=== PATIENT | female | born 1935 | race Caucasian/White ===

== ENCOUNTER 2016-12-21 22:47 | Inpatient (IN) | payer OTHER ==
[~2016-12-21] VITALS: Ht 152.4 cm; Wt 102.7 kg
[~2016-12-21 22:47] MED LIST: ACTOS15 MG PO; ADULT LOW DOSE81 M1 PO; FISH OIL 1,0001 EAC7 PO; GLIPIZIDE XL10 MG PO; GLUCOPHAGE1000 MG PO; HYDROCHLOROTHIA25 MG PO; JANUMET 50/11 TABLET PO; LEVOTHROID,S0.137 MG PO; LOPRESSOR100 M1 PO; NIASPAN1000 MG PO; NORVASC2.5 MG PO; PRINIVIL40 MG PO; SIMVASTATIN20 MG PO
[2016-12-21 23:42] LABS: EOSINOPHIL (%) 0.4 % (0-5); HEMATOCRIT 40.6 % (36.0-46.0); IMMATURE GRANULOCYTE (%) 3.7 % (0.0-0.7); IMMATURE GRANULOCYTE COUNT 0.2 K/uL; LYMPHOCYTE COUNT 0.6 K/uL (1.0-2.8); MCH 28.8 PG (29.0-34.0); MCHC 33.5 G/DL (30.0-36.0); MCV 85.8 FL (83-99); MEAN PLAT.VOLUME 11.9 uM^3 (9.5-12.4); MONOCYTE (%) 17.7 % (3-12); MONOCYTE COUNT 0.8 K/uL (0-0.8); PLATELET COUNT 189 K/uL (156-360); RBC DIS.WIDTH-CV 15.2 % (11.8-14.6); RBC DIS.WIDTH-SD 48.1 % (39-53); RED BLOOD COUNT 4.73 M/uL (3.80-5.20); WHITE BLOOD COUNT 4.6 K/uL (4.1-10.2)
[2016-12-22] VITALS (7 sets, daily range): BP systolic 119–190; BP diastolic 57–90
[2016-12-22 00:06] LABS: TROP-I INTERPRETATION NEGATIVE; TROPONIN-I 0.07 ng/mL (0.0-0.30)
[2016-12-22 00:09] LABS: ADD MIUA? YES; BILIRUBIN NEGATIVE; BLOOD MODERATE; COLOR YELLOW ((YELLOW)); GLUCOSE (STRIP) >=500; KETONES 5; LEUKOCYTES MODERATE; NITRITE NEGATIVE; PROTEIN (STRIP) 100; UROBILINOGEN 0.2 MG/DL (0.2-1.0)
[2016-12-22 00:14] LABS: BACTERIA RARE /HPF; EPITHELIAL CELLS NONE SEEN /HPF; MUCUS TRACE /LPF; UCUL ADDED? YES; WHITE BLOOD CELLS TNTC /HPF (0-5)
[2016-12-22 00:36] LABS: CHLORIDE 97 mEq/L (99-109); POTASSIUM 3.5 mEq/L (3.7-5.4); SODIUM 133 mEq/L (136-147)
[2016-12-22 00:38] LABS: GLUCOSE 397 mg/dL (70-99)
[2016-12-22 00:40] LABS: ANION GAP 13 MEQ/L (2-14); TOTAL BILIRUBIN 0.7 mg/dL (0.0-1.0)
[2016-12-22 00:42] LABS: ALKALINE PHOSPHATASE 77 IU/L (3-129); GFR ESTIMATE (CALCULATED) 36 mL/min/
[2016-12-22 00:43] LABS: UREA NITROGEN (BUN) 20 mg/dL (9-23)
[2016-12-22 06:28] LABS: POINT-OF-CARE METER ID UU14314084
[2016-12-22] MEDS ORDERED: FUROSEMIDE20 MG PO (08:43)
[2016-12-22 08:54] LABS: POINT-OF-CARE METER ID UU14162508; POINT-OF-CARE USER ID 612031306
[2016-12-22 12:01] LABS: POINT-OF-CARE METER ID UU14162508
[2016-12-22 17:28] LABS: POINT-OF-CARE METER ID UU14208750
[2016-12-22 21:25] LABS: POINT-OF-CARE METER ID UU14314084
[2016-12-23 03:45] VITALS: BP 118/58
[2016-12-23 06:38] LABS: HEMATOCRIT 38.2 % (36.0-46.0); MCH 28.9 PG (29.0-34.0); MCHC 32.5 G/DL (30.0-36.0); RBC DIS.WIDTH-CV 15.9 % (11.8-14.6); RBC DIS.WIDTH-SD 52.3 % (39-53); RED BLOOD COUNT 4.29 M/uL (3.80-5.20); WHITE BLOOD COUNT 5.4 K/uL (4.1-10.2)
[2016-12-23 06:59] LABS: ANION GAP 9 MEQ/L (2-14); CHLORIDE 97 MEQ/L (99-109); GFR ESTIMATE (CALCULATED) 36 mL/min/; SAMPLE HEMOLYSIS CHECK 0; SAMPLE ICTERIC CHECK 0; SAMPLE LIPEMIA CHECK 0; SODIUM 132 MEQ/L (136-147); UREA NITROGEN (BUN) 22 mg/dL (9-23)
[2016-12-23 07:04] LABS: GLUCOSE 152 mg/dL (70-99)
[2016-12-23 07:09] LABS: MEAN PLAT.VOLUME 12.2 uM^3 (9.5-12.4); PLAT.SUFFICIENCY ADEQUATE; PLATELET COUNT 175 K/uL (156-360)
[2016-12-23 08:15] VITALS: BP 128/64
[2016-12-23 10:58] VITALS: BP 116/54
[2016-12-23 12:03] LABS: POINT-OF-CARE METER ID UU14314084; POINT-OF-CARE USER ID PUTDRM
[2016-12-23 15:55] VITALS: BP 124/56
[2016-12-23 16:55] LABS: POINT-OF-CARE METER ID UU14162508
[2016-12-23 19:26] VITALS: BP 110/58
[2016-12-23 21:28] LABS: POINT-OF-CARE METER ID UU14162508
[2016-12-23 23:06] VITALS: BP 119/57
[2016-12-24 03:10] VITALS: BP 114/61
[2016-12-24 06:56] LABS: POINT-OF-CARE METER ID UU14314084
[2016-12-24 07:23] LABS: ANION GAP 8 MEQ/L (2-14); CHLORIDE 95 MEQ/L (99-109); GFR ESTIMATE (CALCULATED) 42 mL/min/; GLUCOSE 228 mg/dL (70-99); POTASSIUM 4.5 MEQ/L (3.7-5.4); SAMPLE HEMOLYSIS CHECK 0; SAMPLE ICTERIC CHECK 0; SAMPLE LIPEMIA CHECK 0; SODIUM 128 MEQ/L (136-147); UREA NITROGEN (BUN) 23 mg/dL (9-23)
[2016-12-24 07:24] VITALS: BP 110/52
[2016-12-24 08:57] VITALS: BP 120/56
[2016-12-24 11:26] LABS: POINT-OF-CARE METER ID UU14162508
[2016-12-24 16:53] LABS: POINT-OF-CARE METER ID UU14162508
[2016-12-24 17:22] VITALS: BP 116/56
[2016-12-24 19:47] VITALS: BP 124/59
[2016-12-24 22:50] LABS: POINT-OF-CARE METER ID UU14314084
[2016-12-24 23:15] VITALS: BP 122/65
[2016-12-25 03:10] VITALS: BP 118/56
[2016-12-25 06:54] LABS: POINT-OF-CARE METER ID UU14314084
[2016-12-25 07:28] LABS: ANION GAP 7 MEQ/L (2-14); CHLORIDE 98 MEQ/L (99-109); GFR ESTIMATE (CALCULATED) 36 mL/min/; GLUCOSE 157 mg/dL (70-99); POTASSIUM 4.9 MEQ/L (3.7-5.4); SAMPLE HEMOLYSIS CHECK 0; SAMPLE ICTERIC CHECK 0; SAMPLE LIPEMIA CHECK 0; SODIUM 132 MEQ/L (136-147); UREA NITROGEN (BUN) 31 mg/dL (9-23)
[2016-12-25 08:36] VITALS: BP 134/64
[2016-12-25] MEDS ORDERED: CEFTIN250 MG PO (10:51)
[2016-12-25] MEDS ORDERED: TYLENOL EXTRA500 MG PO (10:52)
[2016-12-25] MEDS ORDERED: LISINOPRIL20 MG PO (10:52)
[2016-12-25] MEDS ORDERED: LEVEMIR100 UNIT/2 SC (10:54)
[2016-12-25 11:56] LABS: POINT-OF-CARE METER ID UU14162508
[2016-12-25 12:09] VITALS: BP 119/65
== END 2016-12-25 14:44 | DRG 690 ==
LOC: EME → EDBD 22:47 → EDOF 12-22 03:31 → 2EAST 12-22 03:31 → ENRESERV 12-22 03:34 → 2EAST 12-22 05:25
PROVIDERS: Emergency Medicine; Family Medicine; Hospitalist
DX: N39.0 Urinary tract infection, site not specified (principal); L03.116 Cellulitis of left lower limb; R09.02 Hypoxemia; E03.9 Hypothyroidism, unspecified; E11.65 Type 2 diabetes mellitus with hyperglycemia; E86.0 Dehydration; E11.22 Type 2 diabetes mellitus with diabetic chronic kidney disease; E78.5 Hyperlipidemia, unspecified; I12.9 Hypertensive chronic kidney disease with stage 1 through stage 4 chronic kidney disease, or unspecified chronic kidney disease; E87.0 Hyperosmolality and hypernatremia; Z68.41 Body mass index [BMI] 40.0-44.9, adult; E87.1 Hypo-osmolality and hyponatremia; N18.3 Chronic kidney disease, stage 3 (moderate); E53.8 Deficiency of other specified B group vitamins; R00.0 Tachycardia, unspecified; I25.10 Atherosclerotic heart disease of native coronary artery without angina pectoris; Z66 Do not resuscitate; E87.6 Hypokalemia; B96.20 Unspecified Escherichia coli [E. coli] as the cause of diseases classified elsewhere; Z72.0 Tobacco use; Z79.4 Long term (current) use of insulin; Z79.82 Long term (current) use of aspirin; Z95.5 Presence of coronary angioplasty implant and graft; Z79.899 Other long term (current) drug therapy; Z82.49 Family history of ischemic heart disease and other diseases of the circulatory system
CPT/HCPCS: 71020; 80048; 80053; 81003; 82306; 82607; 82948; 83605; 84443; 84484; 85025; 85027; 87040; 87077; 87086; 87186; 93005; 94799; 99281; 99285; J0360; J0456; J0696; J1644; J1815; J1956; J2405; J3420; J7030; J7040; J7050

== ENCOUNTER 2017-02-20 22:34 | Observation (INO) | payer OTHER ==
[~2017-02-20] VITALS: Ht 152.4 cm; Wt 118.7 kg
[~2017-02-20 22:34] MED LIST changes: +CEFTIN250 MG PO; +FUROSEMIDE20 MG PO; +LEVEMIR100 UNIT/2 SC; -LEVOTHROID,S0.137 MG PO; +LEVOTHYROXINE137 MCG PO; +LISINOPRIL20 MG PO; +TYLENOL EXTRA500 MG PO
[2017-02-20 23:04] LABS: BASOPHIL COUNT 0.1 K/uL (0-0.1); EOSINOPHIL (%) 1.8 % (0-5); EOSINOPHIL COUNT 0.2 K/uL (0-0.3); HEMATOCRIT 36.3 % (36.0-46.0); IMMATURE GRANULOCYTE (%) 0.6 % (0.0-0.7); IMMATURE GRANULOCYTE COUNT 0.1 K/uL; INSTRUMENT ABS NEUTROPHIL CT 8.5 K/uL; LYMPHOCYTE COUNT 1.2 K/uL (1.0-2.8); MCH 29.4 PG (29.0-34.0); MCV 92.1 FL (83-99); MEAN PLAT.VOLUME 11.7 uM^3 (9.5-12.4); MONOCYTE (%) 10.2 % (3-12); MONOCYTE COUNT 1.1 K/uL (0-0.8); NEUTROPHIL (%) 75.8 % (45-76); NEUTROPHIL COUNT 8.5 K/uL (1.8-6.4); PLATELET COUNT 267 K/uL (156-360); RBC DIS.WIDTH-CV 16.4 % (11.8-14.6); RBC DIS.WIDTH-SD 55.9 % (39-53); RED BLOOD COUNT 3.94 M/uL (3.80-5.20); WHITE BLOOD COUNT 11.2 K/uL (4.1-10.2)
[2017-02-20 23:12] LABS: CHLORIDE 108 mEq/L (99-109); POTASSIUM 4.3 mEq/L (3.7-5.4); SODIUM 143 mEq/L (136-147)
[2017-02-20 23:14] LABS: GLUCOSE 57 mg/dL (70-99)
[2017-02-20 23:15] LABS: ANION GAP 11 MEQ/L (2-14)
[2017-02-20 23:16] LABS: TOTAL BILIRUBIN 0.6 mg/dL (0.0-1.0)
[2017-02-20 23:18] LABS: ALKALINE PHOSPHATASE 94 IU/L (3-129); GFR ESTIMATE (CALCULATED) 36 mL/min/
[2017-02-20 23:19] LABS: UREA NITROGEN (BUN) 40 mg/dL (9-23)
[2017-02-20 23:21] LABS: LIPASE 53 U/L (1.0-51.0)
[2017-02-20 23:33] LABS: ADD MIUA? YES; BILIRUBIN NEGATIVE; BLOOD SMALL; COLOR STRAW ((YELLOW)); GLUCOSE (STRIP) NEGATIVE; KETONES NEGATIVE; LEUKOCYTES NEGATIVE; NITRITE NEGATIVE; PROTEIN (STRIP) NEGATIVE; SPECIFIC GRAVITY 1.005 (1.000-1.030); UROBILINOGEN 0.2 MG/DL (0.2-1.0)
[2017-02-20 23:35] LABS: BACTERIA NONE SEEN /HPF; EPITHELIAL CELLS RARE /HPF; MUCUS NONE SEEN /LPF; RED BLOOD CELLS 0-5 /HPF (0-5); UCUL ADDED? NO; WHITE BLOOD CELLS NONE SEEN /HPF (0-5)
[2017-02-21 00:30] LABS: POINT-OF-CARE METER ID UU14100415
[2017-02-21 02:14] LABS: POINT-OF-CARE METER ID UU14100415
[2017-02-21 04:46] VITALS: BP 161/64
[2017-02-21 07:38] LABS: Estimated Average Glucose 166 mg/dL (70-123); HEMOGLOBIN A1c (GLYCOHEMOGLOB) 7.4 % HGB (Below 5.7)
[2017-02-21 08:08] LABS: POINT-OF-CARE METER ID UU14162513
[2017-02-21 08:36] VITALS: BP 123/56
[2017-02-21 09:20] LABS: HEMATOCRIT 36.5 % (36.0-46.0); MCH 29.6 PG (29.0-34.0); MCHC 31.2 G/DL (30.0-36.0); MCV 94.8 FL (83-99); MEAN PLAT.VOLUME 12.1 uM^3 (9.5-12.4); PLATELET COUNT 246 K/uL (156-360); RBC DIS.WIDTH-CV 17.1 % (11.8-14.6); RBC DIS.WIDTH-SD 59.2 % (39-53); RED BLOOD COUNT 3.85 M/uL (3.80-5.20); WHITE BLOOD COUNT 9.5 K/uL (4.1-10.2)
[2017-02-21 09:46] LABS: ANION GAP 10 MEQ/L (2-14); CHLORIDE 108 MEQ/L (99-109); GFR ESTIMATE (CALCULATED) 31 mL/min/; POTASSIUM 4.9 MEQ/L (3.7-5.4); SAMPLE HEMOLYSIS CHECK 0; SAMPLE ICTERIC CHECK 0; SAMPLE LIPEMIA CHECK 0; SODIUM 143 MEQ/L (136-147); UREA NITROGEN (BUN) 41 mg/dL (9-23)
[2017-02-21 09:47] LABS: GLUCOSE 129 mg/dL (70-99)
[2017-02-21 12:10] VITALS: BP 134/74
[2017-02-21 12:20] LABS: POINT-OF-CARE METER ID UU14162513
[2017-02-21] MEDS ORDERED: FUROSEMIDE40 MG PO (13:51)
[2017-02-21] MEDS ORDERED: LISINOPRIL5 MG PO (13:51)
[2017-02-21] MEDS ORDERED: LANTUS 3 M100 UNITS1 SC (13:52)
[2017-02-21] MEDS ORDERED: NOVOLOG PE100 UNITS/ SC (13:52)
[2017-02-21] MEDS ORDERED: ATORVASTATIN CA10 MG PO (13:52)
[2017-02-21] MEDS ORDERED: FISH OIL 1,0001 EA11 PO (13:54)
[2017-02-21 17:29] LABS: POINT-OF-CARE METER ID UU14162513
[2017-02-21 19:05] VITALS: BP 151/61
[2017-02-21 21:19] LABS: POINT-OF-CARE METER ID UU13113700
[2017-02-21 23:29] VITALS: BP 126/57
[2017-02-22 08:26] VITALS: BP 127/60
[2017-02-22 09:37] LABS: POINT-OF-CARE METER ID UU13113831
[2017-02-22] MEDS ORDERED: FAMOTIDINE20 MG PO (10:30)
[2017-02-22] MEDS ORDERED: FUROSEMIDE20 MG PO (10:30)
[2017-02-22] MEDS ORDERED: LISINOPRIL20 MG PO (10:30)
[2017-02-22] MEDS ORDERED: LEVEMIR100 UNIT/2 SC (10:31)
[2017-02-22 12:04] VITALS: BP 131/64
[2017-02-22 12:53] LABS: POINT-OF-CARE METER ID UU13113831
== END 2017-02-22 14:37 ==
LOC: EME 22:34 → EDOF 02-21 02:56 → 5WEST 02-21 02:56 → EDOF 02-21 02:56 → ENRESERV 02-21 02:57 → 5WEST 02-21 04:27
PROVIDERS: Emergency Medicine; Hospitalist; Nurse Practitioner Family
DX: R53.1 Weakness (principal); E11.649 Type 2 diabetes mellitus with hypoglycemia without coma; R19.7 Diarrhea, unspecified; E53.8 Deficiency of other specified B group vitamins; R60.0 Localized edema; E55.9 Vitamin D deficiency, unspecified; I25.10 Atherosclerotic heart disease of native coronary artery without angina pectoris; Z87.440 Personal history of urinary (tract) infections; Z79.4 Long term (current) use of insulin; Z82.49 Family history of ischemic heart disease and other diseases of the circulatory system; Z79.82 Long term (current) use of aspirin; M17.0 Bilateral primary osteoarthritis of knee; I10 Essential (primary) hypertension; E78.5 Hyperlipidemia, unspecified; E03.9 Hypothyroidism, unspecified; Z86.73 Personal history of transient ischemic attack (TIA), and cerebral infarction without residual deficits; E66.01 Morbid (severe) obesity due to excess calories; Z68.43 Body mass index [BMI] 50.0-59.9, adult; Z74.1 Need for assistance with personal care
CPT/HCPCS: 71020; 80048; 80053; 81003; 82948; 83036; 83690; 83880; 85025; 85027; 87493; 87506; 93970; 99281; 99285; G0378; G8978 GP CJ; G8979 GP CI; G8980 GP CL; G8987 GO CL; G8988 GO CK; G8989 GO CL; J1644; J1815; J3420; S0030

== ENCOUNTER 2017-03-23 17:44 | Inpatient (IN) | payer OTHER ==
[~2017-03-23] VITALS: Ht 165.1 cm; Wt 135.2 kg
[~2017-03-23 17:44] MED LIST changes: +ATORVASTATIN CA10 MG PO; +FAMOTIDINE20 MG PO; +FUROSEMIDE40 MG PO; +LANTUS 3 M100 UNITS1 SC; +LISINOPRIL5 MG PO; +NOVOLOG PE100 UNITS/ SC
[2017-03-23 20:15] LABS: BASOPHIL (%) 0.2 % (0-1); EOSINOPHIL (%) 0.5 % (0-5); EOSINOPHIL COUNT 0.1 K/uL (0-0.3); HEMATOCRIT 41.1 % (36.0-46.0); HEMOGLOBIN 13.1 G/DL (11.9-15.5); IMMATURE GRANULOCYTE (%) 1.3 % (0.0-0.7); LYMPHOCYTE (%) 6.3 % (15-42); LYMPHOCYTE COUNT 0.9 K/uL (1.0-2.8); MCH 28.4 PG (29.0-34.0); MCHC 31.9 G/DL (30.0-36.0); MONOCYTE (%) 12.3 % (3-12); MONOCYTE COUNT 1.7 K/uL (0-0.8); NEUTROPHIL (%) 79.4 % (45-76); NEUTROPHIL COUNT 11.3 K/uL (1.8-6.4); NRBC (%) 0.1 /100 WBC (0-0); PLATELET COUNT 397 K/uL (156-360); RBC DIS.WIDTH-CV 16.4 % (11.8-14.6); RBC DIS.WIDTH-SD 53.5 % (39-53); RED BLOOD COUNT 4.62 M/uL (3.80-5.20); WHITE BLOOD COUNT 14.2 K/uL (4.1-10.2)
[2017-03-23 20:20] LABS: ALBUMIN 3.5 g/dL (3.2-4.8); CHLORIDE 93 mEq/L (99-109); SODIUM 125 mEq/L (136-147)
[2017-03-23 20:21] LABS: POTASSIUM 6.1 mEq/L (3.7-5.4)
[2017-03-23 20:22] LABS: GLUCOSE 92 mg/dL (70-99); TOTAL PROTEIN 5.8 g/dL (6.4-8.3)
[2017-03-23 20:24] LABS: TOTAL BILIRUBIN 0.6 mg/dL (0.0-1.0)
[2017-03-23 20:26] LABS: ALKALINE PHOSPHATASE 117 IU/L (3-129); GFR ESTIMATE (CALCULATED) 16 mL/min/
[2017-03-23 20:27] LABS: UREA NITROGEN (BUN) 76 mg/dL (9-23)
[2017-03-23 20:28] LABS: AST (GOT) 19 IU/L (2-34)
[2017-03-23 20:29] LABS: ALT (GPT) 21 IU/L (3-49)
[2017-03-23 20:30] LABS: TROP-I INTERPRETATION NEGATIVE
[2017-03-23] MEDS ORDERED: ZITHROMAX250 MG PO (21:13)
[2017-03-23] MEDS ORDERED: FUROSEMIDE20 MG PO (21:14)
[2017-03-23] MEDS ORDERED: FURO40I IV (21:14)
[2017-03-23] MEDS ORDERED: PREDNISONE10 MG PO ×2 (21:16→21:17)
[2017-03-23] MEDS ORDERED: LISINOPRIL20 MG PO (21:16)
[2017-03-23] MEDS ORDERED: SIMVASTATIN20 MG PO (21:17)
[2017-03-23] MEDS ORDERED: GLIPIZIDE XL10 MG PO (21:18)
[2017-03-23] MEDS ORDERED: HUMALOG100 UNIT/2 SC (21:18)
[2017-03-23] MEDS ORDERED: DUONEB 2.5-0.5 M3 ML AEROSOL (21:20)
[2017-03-23] MEDS ORDERED: DUONEB 2.5-0.5 M3 ML IPPB (21:21)
[2017-03-23] MEDS ORDERED: ROBITUSSIN DM118 ML PO (21:22)
[2017-03-23] MEDS ORDERED: TYLENOL EXTRA500 MG PO (21:22)
[2017-03-23 22:26] LABS: BASE EXCESS -8.3 mEq/L (-3 to +3); BICARBONATE 22.1 mEq/L (22-26); CARBOXY HGB 2.1 % (0-5); METHEMOGLOBIN 1.1 % (0-1.5); PCO2 68 mm Hg (35-45); PO2 85 mm Hg (80-100)
[2017-03-23 22:28] LABS: COMMENTS - BLOOD GASES A+C+; DEVICE NC; O2 FLOW 3.5 L/MIN; SITE LR
[2017-03-23 22:29] LABS: pH 7.12 (7.35-7.45)
[2017-03-23 23:40] LABS: TROP-I INTERPRETATION NEGATIVE; TROPONIN-I 0.16 ng/mL (0.0-0.30)
[2017-03-24] VITALS (16 sets, daily range): BP systolic 80–142; BP diastolic 33–97
[2017-03-24 00:20] LABS: APPEARANCE SL.HAZY ((CLEAR)); BILIRUBIN NEGATIVE; BLOOD SMALL; COLOR AMBER ((YELLOW)); GLUCOSE (STRIP) 50; KETONES 5; LEUKOCYTES NEGATIVE; NITRITE NEGATIVE; PROTEIN (STRIP) 100; SPECIFIC GRAVITY 1.017 (1.000-1.030)
[2017-03-24 00:54] LABS: BACTERIA RARE /HPF; EPITHELIAL CELLS RARE /HPF; HYALINE CASTS 0-5 /LPF; MUCUS NONE SEEN /LPF; UCUL ADDED? NO; WHITE BLOOD CELLS 0-5 /HPF (0-5)
[2017-03-24 03:06] LABS: BASE EXCESS -9.9 mEq/L (-3 to +3); BICARBONATE 20.9 mEq/L (22-26); CARBOXY HGB 2.4 % (0-5); METHEMOGLOBIN 1.5 % (0-1.5); PCO2 69 mm Hg (35-45); PO2 91 mm Hg (80-100)
[2017-03-24 03:07] LABS: DEVICE NC; O2 FLOW 2 L/MIN; SITE LR; TOTAL RESP RATE 17 resp/min; pH 7.09 (7.35-7.45)
[2017-03-24 03:49] LABS: CHLORIDE 95 mEq/L (99-109); SODIUM 123 mEq/L (136-147)
[2017-03-24 03:51] LABS: GLUCOSE 134 mg/dL (70-99)
[2017-03-24 03:55] LABS: GFR ESTIMATE (CALCULATED) 16 mL/min/
[2017-03-24 03:56] LABS: UREA NITROGEN (BUN) 75 mg/dL (9-23)
[2017-03-24 04:04] LABS: POTASSIUM 6.1 mEq/L (3.7-5.4)
[2017-03-25] VITALS (26 sets, daily range): BP systolic 97–153; BP diastolic 31–101
[2017-03-25 05:50] LABS: HEMATOCRIT 42.7 % (36.0-46.0); HEMOGLOBIN 13.2 G/DL (11.9-15.5); MCH 27.5 PG (29.0-34.0); MCHC 30.9 G/DL (30.0-36.0); PLATELET COUNT 423 K/uL (156-360); RBC DIS.WIDTH-CV 15.9 % (11.8-14.6); RBC DIS.WIDTH-SD 51.8 % (39-53); WHITE BLOOD COUNT 12.8 K/uL (4.1-10.2)
[2017-03-25 06:13] LABS: CHLORIDE 95 MEQ/L (99-109); GFR ESTIMATE (CALCULATED) 16 mL/min/; SODIUM 128 MEQ/L (136-147); UREA NITROGEN (BUN) 78 mg/dL (9-23)
[2017-03-25 06:22] LABS: GLUCOSE 286 mg/dL (70-99)
[2017-03-25 07:29] LABS: POTASSIUM 5.4 MEQ/L (3.7-5.4)
[2017-03-26] VITALS (24 sets, daily range): BP systolic 71–123; BP diastolic 36–68
[2017-03-26 12:08] LABS: BASE EXCESS -7.6 mEq/L (-3 to +3); BICARBONATE 20.4 mEq/L (22-26); CARBOXY HGB 2.2 % (0-5); METHEMOGLOBIN 1.6 % (0-1.5); PO2 89 mm Hg (80-100)
[2017-03-26 12:09] LABS: COMMENTS - BLOOD GASES A+C+; DEVICE NC; O2 FLOW 2 L/MIN; PCO2 51 mm Hg (35-45); SITE LR; TOTAL RESP RATE 19 resp/min
[2017-03-26 12:10] LABS: pH 7.21 (7.35-7.45)
[2017-03-26 12:26] LABS: ALBUMIN 3.1 G/DL (3.2-4.8); ALKALINE PHOSPHATASE 74 IU/L (3-129); ALT (GPT) 12 IU/L (3-49); AST (GOT) 10 IU/L (2-34); CHLORIDE 99 MEQ/L (99-109); CREATININE 2.8 MG/DL (0.6-1.3); GFR ESTIMATE (CALCULATED) 17 mL/min/; GLUCOSE 214 mg/dL (70-99); MAGNESIUM 1.7 mg/dl (1.3-2.7); PHOSPHORUS 5.7 mg/dL (2.5-4.9); SODIUM 131 MEQ/L (136-147); TOTAL BILIRUBIN 0.6 MG/DL (0.0-1.0); TOTAL PROTEIN 5.3 G/DL (6.4-8.3); UREA NITROGEN (BUN) 74 mg/dL (9-23)
[2017-03-26 12:31] LABS: POTASSIUM 4.1 MEQ/L (3.7-5.4)
[2017-03-26 13:22] LABS: HIGH-SENS C-REACTIVE PROTEIN 0.63 MG/DL (0.02-0.20)
[2017-03-26 13:44] LABS: THYROTROPIN (TSH) 9.6 MIU/L (0.4-5.5)
[2017-03-27] VITALS (23 sets, daily range): BP systolic 77–139; BP diastolic 27–69
[2017-03-27 06:50] LABS: BASOPHIL (%) 0.3 % (0-1); EOSINOPHIL (%) 0.7 % (0-5); EOSINOPHIL COUNT 0.1 K/uL (0-0.3); HEMATOCRIT 35.1 % (36.0-46.0); HEMOGLOBIN 11.2 G/DL (11.9-15.5); IMMATURE GRANULOCYTE (%) 1.2 % (0.0-0.7); LYMPHOCYTE (%) 9.9 % (15-42); LYMPHOCYTE COUNT 1.1 K/uL (1.0-2.8); MCH 27.6 PG (29.0-34.0); MCHC 31.9 G/DL (30.0-36.0); MCV 86.5 FL (83-99); MONOCYTE (%) 15.6 % (3-12); MONOCYTE COUNT 1.7 K/uL (0-0.8); NEUTROPHIL (%) 72.3 % (45-76); NEUTROPHIL COUNT 7.7 K/uL (1.8-6.4); NRBC (%) 0.4 /100 WBC (0-0); PLATELET COUNT 359 K/uL (156-360); RBC DIS.WIDTH-CV 15.9 % (11.8-14.6); RBC DIS.WIDTH-SD 50.5 % (39-53); RED BLOOD COUNT 4.06 M/uL (3.80-5.20); WHITE BLOOD COUNT 10.6 K/uL (4.1-10.2)
[2017-03-27 07:11] LABS: ALBUMIN 2.8 G/DL (3.2-4.8); CHLORIDE 103 MEQ/L (99-109); MAGNESIUM 1.6 mg/dl (1.3-2.7); POTASSIUM 3.5 MEQ/L (3.7-5.4); SODIUM 135 MEQ/L (136-147); TOTAL BILIRUBIN 0.7 MG/DL (0.0-1.0)
[2017-03-27 07:17] LABS: ALKALINE PHOSPHATASE 62 IU/L (3-129); ALT (GPT) 10 IU/L (3-49); AST (GOT) 9 IU/L (2-34); CREATININE 2.8 MG/DL (0.6-1.3); GFR ESTIMATE (CALCULATED) 17 mL/min/; GLUCOSE 192 mg/dL (70-99); PHOSPHORUS 4.9 mg/dL (2.5-4.9); TOTAL PROTEIN 4.8 G/DL (6.4-8.3); UREA NITROGEN (BUN) 70 mg/dL (9-23)
[2017-03-28] VITALS (15 sets, daily range): BP systolic 84–148; BP diastolic 39–74
[2017-03-28 06:46] LABS: BASOPHIL (%) 0.1 % (0-1); EOSINOPHIL (%) 0 % (0-5); HEMATOCRIT 36.6 % (36.0-46.0); HEMOGLOBIN 11.3 G/DL (11.9-15.5); IMMATURE GRANULOCYTE (%) 1.8 % (0.0-0.7); LYMPHOCYTE (%) 7.3 % (15-42); LYMPHOCYTE COUNT 0.5 K/uL (1.0-2.8); MCHC 30.9 G/DL (30.0-36.0); MCV 87.6 FL (83-99); MONOCYTE (%) 0.9 % (3-12); MONOCYTE COUNT 0.1 K/uL (0-0.8); NEUTROPHIL (%) 89.9 % (45-76); PLATELET COUNT 331 K/uL (156-360); RBC DIS.WIDTH-CV 16.2 % (11.8-14.6); RBC DIS.WIDTH-SD 52.1 % (39-53); RED BLOOD COUNT 4.18 M/uL (3.80-5.20); WHITE BLOOD COUNT 6.7 K/uL (4.1-10.2)
[2017-03-28 07:26] LABS: ALBUMIN 2.9 G/DL (3.2-4.8); ALKALINE PHOSPHATASE 61 IU/L (3-129); ALT (GPT) 11 IU/L (3-49); AST (GOT) 11 IU/L (2-34); CHLORIDE 104 MEQ/L (99-109); CREATININE 2.5 MG/DL (0.6-1.3); GFR ESTIMATE (CALCULATED) 20 mL/min/; GLUCOSE 238 mg/dL (70-99); MAGNESIUM 1.8 mg/dl (1.3-2.7); PHOSPHORUS 5.4 mg/dL (2.5-4.9); SODIUM 137 MEQ/L (136-147); TOTAL BILIRUBIN 0.8 MG/DL (0.0-1.0); TOTAL PROTEIN 5.2 G/DL (6.4-8.3); UREA NITROGEN (BUN) 68 mg/dL (9-23)
[2017-03-28 07:27] LABS: POTASSIUM 4.4 MEQ/L (3.7-5.4)
[2017-03-29 04:12] VITALS: BP 143/78
[2017-03-29 05:49] LABS: HEMATOCRIT 37.2 % (36.0-46.0); HEMOGLOBIN 11.7 G/DL (11.9-15.5); MCH 27.5 PG (29.0-34.0); MCHC 31.5 G/DL (30.0-36.0); MCV 87.3 FL (83-99); PLATELET COUNT 318 K/uL (156-360); RBC DIS.WIDTH-CV 16.2 % (11.8-14.6); RBC DIS.WIDTH-SD 51.9 % (39-53); RED BLOOD COUNT 4.26 M/uL (3.80-5.20); WHITE BLOOD COUNT 8.4 K/uL (4.1-10.2)
[2017-03-29 06:13] LABS: ALBUMIN 3.4 G/DL (3.2-4.8); CHLORIDE 106 MEQ/L (99-109); CREATININE 2.5 MG/DL (0.6-1.3); GFR ESTIMATE (CALCULATED) 20 mL/min/; GLUCOSE 291 mg/dL (70-99); PHOSPHORUS 4.7 mg/dL (2.5-4.9); POTASSIUM 4.1 MEQ/L (3.7-5.4); SODIUM 138 MEQ/L (136-147); UREA NITROGEN (BUN) 71 mg/dL (9-23); URIC ACID 10.6 mg/dL (3.1-9.2)
[2017-03-29 07:00] VITALS: BP 148/69
[2017-03-29 11:10] VITALS: BP 139/65
[2017-03-29 15:10] VITALS: BP 149/65
[2017-03-29 20:07] VITALS: BP 130/74
[2017-03-29 20:33] LABS: UR CREATININE CONCENTRATION 27.2 MG/DL
[2017-03-30 00:05] VITALS: BP 142/77
[2017-03-30 04:10] VITALS: BP 151/68
[2017-03-30 07:04] VITALS: BP 156/67
[2017-03-30 07:15] LABS: ALBUMIN 3.4 G/DL (3.2-4.8); CHLORIDE 104 MEQ/L (99-109); CREATININE 2.4 MG/DL (0.6-1.3); GFR ESTIMATE (CALCULATED) 21 mL/min/; GLUCOSE 324 mg/dL (70-99); PHOSPHORUS 4.3 mg/dL (2.5-4.9); POTASSIUM 4.1 MEQ/L (3.7-5.4); SODIUM 140 MEQ/L (136-147); UREA NITROGEN (BUN) 73 mg/dL (9-23)
[2017-03-30 08:34] LABS: FOLIC ACID (FOLATE) 9.2 NG/ML (5.0-22.0)
[2017-03-30 11:25] VITALS: BP 161/66
[2017-03-30 15:07] VITALS: BP 120/55
[2017-03-30 19:01] VITALS: BP 130/73
[2017-03-31] VITALS (7 sets, daily range): BP systolic 116–155; BP diastolic 56–76
[2017-03-31 06:30] LABS: CHLORIDE 107 MEQ/L (99-109); CREATININE 2.2 MG/DL (0.6-1.3); GFR ESTIMATE (CALCULATED) 23 mL/min/; GLUCOSE 209 mg/dL (70-99); PHOSPHORUS 3.5 mg/dL (2.5-4.9); POTASSIUM 3.9 MEQ/L (3.7-5.4); SODIUM 143 MEQ/L (136-147); UREA NITROGEN (BUN) 74 mg/dL (9-23)
[2017-03-31 08:26] LABS: INTACT PARATHYROID HORMONE 96 pg/mL (10-69)
[2017-04-01 04:05] VITALS: BP 102/56
[2017-04-01 06:37] LABS: ALBUMIN 2.9 G/DL (3.2-4.8); CHLORIDE 103 MEQ/L (99-109); GFR ESTIMATE (CALCULATED) 25 mL/min/; GLUCOSE 241 mg/dL (70-99); PHOSPHORUS 3.6 mg/dL (2.5-4.9); POTASSIUM 4.2 MEQ/L (3.7-5.4); SODIUM 141 MEQ/L (136-147); UREA NITROGEN (BUN) 75 mg/dL (9-23)
[2017-04-01 07:05] VITALS: BP 101/55
[2017-04-01 11:14] VITALS: BP 119/66
[2017-04-01] MEDS ORDERED: CARVEDILOL6.25 MG PO (12:15)
[2017-04-01] MEDS ORDERED: ADVAIR HFA120 INHAL1 IH (12:17)
[2017-04-01] MEDS ORDERED: FUROSEMIDE40 MG PO (12:17)
[2017-04-01] MEDS ORDERED: ERGOCALCIF50000 UNIT PO (12:18)
[2017-04-01] MEDS ORDERED: SYNTHROID150 MCG PO (12:18)
[2017-04-01] MEDS ORDERED: CARDIZEM CD120 M1 PO (12:21)
[2017-04-01] MEDS ORDERED: PREDNISONE10 MG PO (12:48)
== END 2017-04-01 15:14 | DRG 682 ==
LOC: EME 17:44 → 4WEST 23:45 → EDOF 23:45 → 5EAST 23:45 → ENRESERV 23:49 → 4WEST 03-24 00:52 → ENRESERV 03-28 12:00 → 4WEST 03-28 12:03 → ENRESERV 03-28 14:38 → 5EAST 03-28 18:21 → ENPENDDIS 04-01 → EDPENDDISTM 04-01 14:00 → 5EAST 04-01 15:14
PROVIDERS: Emergency Medicine; Family Medicine; Hospitalist; Internal Medicine; Internal Medicine Nephrology; Surgery
PROC: 5A09357 Assistance with Respiratory Ventilation, Less than 24 Consecutive Hours, Continuous Positive Airway Pressure (ICD-10-PCS; principal; 2017-03-24)
DX: N17.9 Acute kidney failure, unspecified (principal); J96.22 Acute and chronic respiratory failure with hypercapnia; J96.21 Acute and chronic respiratory failure with hypoxia; G93.41 Metabolic encephalopathy; I42.9 Cardiomyopathy, unspecified; I13.0 Hypertensive heart and chronic kidney disease with heart failure and stage 1 through stage 4 chronic kidney disease, or unspecified chronic kidney disease; E87.1 Hypo-osmolality and hyponatremia; E87.4 Mixed disorder of acid-base balance; J44.1 Chronic obstructive pulmonary disease with (acute) exacerbation; Z66 Do not resuscitate; E27.40 Unspecified adrenocortical insufficiency; N18.3 Chronic kidney disease, stage 3 (moderate); I50.810 Right heart failure, unspecified; I27.29 Other secondary pulmonary hypertension; I25.10 Atherosclerotic heart disease of native coronary artery without angina pectoris; E87.6 Hypokalemia; E66.01 Morbid (severe) obesity due to excess calories; E03.9 Hypothyroidism, unspecified; E11.22 Type 2 diabetes mellitus with diabetic chronic kidney disease; E11.65 Type 2 diabetes mellitus with hyperglycemia; E88.09 Other disorders of plasma-protein metabolism, not elsewhere classified; G47.33 Obstructive sleep apnea (adult) (pediatric); I44.7 Left bundle-branch block, unspecified; R13.10 Dysphagia, unspecified; T50.2X5A Adverse effect of carbonic-anhydrase inhibitors, benzothiadiazides and other diuretics, initial encounter; T44.7X5A Adverse effect of beta-adrenoreceptor antagonists, initial encounter; D64.9 Anemia, unspecified; I89.0 Lymphedema, not elsewhere classified; K59.09 Other constipation; M19.90 Unspecified osteoarthritis, unspecified site; I36.1 Nonrheumatic tricuspid (valve) insufficiency; Z79.4 Long term (current) use of insulin; Z86.73 Personal history of transient ischemic attack (TIA), and cerebral infarction without residual deficits; Z87.440 Personal history of urinary (tract) infections; Z95.5 Presence of coronary angioplasty implant and graft; Z99.81 Dependence on supplemental oxygen; Z82.49 Family history of ischemic heart disease and other diseases of the circulatory system
CPT/HCPCS: 36600; 71045; 74230; 76770; 80048; 80048 91; 80053; 80069; 81003; 82306; 82533 91; 82570; 82607; 82746; 82803; 82948; 83605; 83735; 83880; 83970; 84100; 84145 90; 84156; 84439; 84443; 84484; 84550; 84999; 85025; 85027; 86141; 87040; 87502; 87641; 92526 GN; 92610 GN; 92611 GN; 93005; 93306; 94002; 94640; 94640 76; 94660; 94667; 94668; 94760; 94799; 99202; 99281; 99285; C1751; J1265; J1644; J1720; J1815; J1940; J2405; J2543; J2920; J7030; J7042; J7050; J7512; P9047; S0028

== ENCOUNTER 2017-04-15 15:19 | Emergency (ER) | payer OTHER ==
[~2017-04-15] VITALS: Ht 160 cm; Wt 139.5 kg
[~2017-04-15 15:19] MED LIST changes: +ADVAIR HFA120 INHAL1 IH; +CARDIZEM CD120 M1 PO; +CARVEDILOL6.25 MG PO; +DUONEB 2.5-0.5 M3 ML AEROSOL; +DUONEB 2.5-0.5 M3 ML PO; +ERGOCALCIF50000 UNIT PO; +FURO40I IV; +HUMALOG100 UNIT/2 SC; +PREDNISONE10 MG PO; +ROBITUSSIN DM118 ML PO; +SYNTHROID150 MCG PO; +TYLENOL ARTHRI650 MG PO; +ZITHROMAX250 MG PO
[2017-04-15 17:00] LABS: ALBUMIN 2.4 g/dL (3.2-4.8); CHLORIDE 95 mEq/L (99-109)
[2017-04-15 17:01] LABS: MAGNESIUM 1.2 mg/dL (1.3-2.7)
[2017-04-15 17:02] LABS: GLUCOSE 83 mg/dL (70-99)
[2017-04-15 17:03] LABS: TOTAL PROTEIN 4.7 g/dL (6.4-8.3)
[2017-04-15 17:04] LABS: TOTAL BILIRUBIN 1.3 mg/dL (0.0-1.0)
[2017-04-15 17:05] LABS: POTASSIUM 5.5 mEq/L (3.7-5.4); SODIUM 133 mEq/L (136-147)
[2017-04-15 17:06] LABS: ALKALINE PHOSPHATASE 99 IU/L (3-129); GFR ESTIMATE (CALCULATED) 23 mL/min/
[2017-04-15 17:07] LABS: UREA NITROGEN (BUN) 88 mg/dL (9-23)
[2017-04-15 17:08] LABS: AST (GOT) 24 IU/L (2-34)
[2017-04-15 17:09] LABS: ALT (GPT) 25 IU/L (3-49)
[2017-04-15 17:11] LABS: CREATININE 2.2 mg/dL (0.6-1.3); TROP-I INTERPRETATION NEGATIVE; TROPONIN-I 0.08 ng/mL (0.0-0.30)
[2017-04-15 17:48] LABS: BASE EXCESS -2.7 mEq/L (-3 to +3); BICARBONATE 24.4 mEq/L (22-26); CARBOXY HGB 1.6 % (0-5); METHEMOGLOBIN 1.1 % (0-1.5); PCO2 52 mm Hg (35-45); PO2 104 mm Hg (80-100); SITE LR; pH 7.28 (7.35-7.45)
[2017-04-15 17:49] LABS: COMMENTS - BLOOD GASES A+C+; DEVICE NRBM; O2 FLOW 15 L/MIN; TOTAL RESP RATE 36 resp/min
[2017-04-15 17:52] LABS: APPEARANCE SL.HAZY ((CLEAR)); BILIRUBIN NEGATIVE; BLOOD NEGATIVE; COLOR AMBER ((YELLOW)); GLUCOSE (STRIP) NEGATIVE; KETONES NEGATIVE; LEUKOCYTES TRACE; NITRITE NEGATIVE; PROTEIN (STRIP) NEGATIVE; SPECIFIC GRAVITY 1.014 (1.000-1.030)
[2017-04-15 18:03] LABS: BACTERIA RARE /HPF; EPITHELIAL CELLS NONE SEEN /HPF; MUCUS TRACE /LPF; RED BLOOD CELLS 0-5 /HPF (0-5); UCUL ADDED? NO; WHITE BLOOD CELLS 0-5 /HPF (0-5)
[2017-04-15 18:05] LABS: HEMATOCRIT 36.2 % (36.0-46.0); HEMOGLOBIN 11.5 G/DL (11.9-15.5); MCH 27.8 PG (29.0-34.0); MCHC 31.8 G/DL (30.0-36.0); MCV 87.4 FL (83-99); NRBC (%) 0.3 /100 WBC (0-0); RBC DIS.WIDTH-CV 17.2 % (11.8-14.6); RBC DIS.WIDTH-SD 55.1 % (39-53); RED BLOOD COUNT 4.14 M/uL (3.80-5.20); WHITE BLOOD COUNT 6.2 K/uL (4.1-10.2)
[2017-04-15 18:30] VITALS: BP 31/24
[2017-04-15 19:01] LABS: ABS NEUTROPHIL COUNT 3.8; ANISOCYTOSIS 1+; ATYPICAL LYMPHOCYTE 0.9 %; BAND NEUTROPHILS 33.9 % (0-8.0); BURR CELLS 2+; EOSINOPHIL ABS CT 0; HEMATOLOGY COMMENT 1 SN; MACROCYTES 1+; MONOCYTES 13.9 % (0-9.0); MYELOCYTES 4.3 %; NUCLEATED RBC'S 0.9; PLAT.SUFFICIENCY DECREASED; POIKILOCYTOSIS 3+; TOXIC GRANULATION 2+
[2017-04-15 19:04] LABS: PLATELET COUNT 83 K/uL (156-360)
[2017-04-15] MEDS ORDERED: CARDIZEM CD120 M1 PO (19:48)
[2017-04-15] MEDS ORDERED: KLOR-CON 1010 ME1 PO (19:49)
[2017-04-15] MEDS ORDERED: LANTUS 3 M100 UNITS1 SC (19:51)
[2017-04-15] MEDS ORDERED: LASIX20 MG PO ×2 (19:52→20:19)
[2017-04-15] MEDS ORDERED: PREDNISONE10 MG PO (19:54)
[2017-04-15] MEDS ORDERED: SENNA PLUS TAB1 EACH PO (19:55)
[2017-04-15] MEDS ORDERED: SYNTHROID150 MCG PO (19:58)
[2017-04-15] MEDS ORDERED: ERGOCALCIF50000 UNIT PO (19:59)
[2017-04-15] MEDS ORDERED: ZOLOFT25 MG PO (20:00)
[2017-04-15] MEDS ORDERED: ADVAIR HFA120 INHAL1 IH (20:01)
[2017-04-15] MEDS ORDERED: DIFLUCAN100 MG PO (20:07)
[2017-04-15] MEDS ORDERED: DULCOLAX10 MG PR ×2 (20:09→20:34)
[2017-04-15] MEDS ORDERED: FLEET MINERAL133 ML PR (20:11)
[2017-04-15] MEDS ORDERED: MILK OF MAGN PO (20:14)
[2017-04-15] MEDS ORDERED: OXYCODONE HCL5 MG PO (20:22)
[2017-04-15] MEDS ORDERED: PRUNE JUICE PO (20:24)
== END 2017-04-15 19:38 ==
LOC: EME 15:19
PROVIDERS: Emergency Medicine
DX: J96.01 Acute respiratory failure with hypoxia (principal); I95.9 Hypotension, unspecified; I46.9 Cardiac arrest, cause unspecified; E10.9 Type 1 diabetes mellitus without complications; E78.5 Hyperlipidemia, unspecified; M17.0 Bilateral primary osteoarthritis of knee; Z79.4 Long term (current) use of insulin; Z79.82 Long term (current) use of aspirin; Z86.73 Personal history of transient ischemic attack (TIA), and cerebral infarction without residual deficits
CPT/HCPCS: 36600; 71045; 80053; 81003; 82803; 82948; 83605; 83735; 83880; 84484; 85025; 87040; 93005; 99281; 99285; J2930; J7030